=== PATIENT | female | born 1955 | race African-American/Black ===

== ENCOUNTER 2016-11-27 16:42 | Inpatient (IN) | payer MEDICARE, OTHER ==
[~2016-11-27] VITALS: Ht 170.2 cm; Wt 86.6 kg
--- NOTE | 2016-11-27 21:10 | NUR ---
Pt. admitted to [facility], under care of Dr. Jain Belongs List completed
--- NOTE | 2016-11-27 21:30 | NUR ---
ADMITTED 60 YEAR OLD AA FEMALE ON 5150 FOR GD, AWAKE, A/O X2, FLAT AFFECT, DISORGANIZED THOUGHT, SEEMS TO BE PREOCCUPIED, MAY BE RESPONDING TO INTERNAL STIMULI, THOUGH PT DENIES HEARING VOICES AT THIS TIME, VERY UNKEMPT APPEARANCE. ASSISTED WITH SHOWER, SKIN INTACT, DENIES SI/HI/PAIN. NO RECORD OF HOME MEDS, PT UNABLE TO SAY IF SHE IS ON ANY MEDICATION. UNABLE TO NOTIFY DESIGNATED PERSON, AT THIS TIME, WILL FOLLOW UP IN AM.
[2016-11-27] MEDS ORDERED: ZOLPIDEM 5 MG TABLET PO PRN (22:00)
[2016-11-27] MEDS ORDERED: MAG HYDROX/AL HYDROX/SIMETH 30 ML LIQUID UDC PO PRN (22:00)
[2016-11-27] MEDS ORDERED: MAGNESIUM HYDROXIDE 30 ML LIQUID UDC PO PRN (22:00)
[2016-11-27] MEDS ORDERED: ACETAMINOPHEN 325 MG TABLET PO PRN (22:00)
[2016-11-27 22:19] VITALS: BP 144/88
[2016-11-27] MEDS ORDERED: ZOLPIDEM 5 MG TABLET ONE (22:21)
[2016-11-27 22:36] LABS: *BILIRUBIN,URIN NEGATIVE (NEGATIVE); *BLOOD, URINE Trace-intact (NEGATIVE); *CLARITY,URINE CLEAR (CLEAR); *COLOR,URINE YELLOW (YELLOW); *KETONES,URINE NEGATIVE (NEGATIVE); *PROTEIN,URINE NEGATIVE (NEGATIVE); *UROBILINOGEN,URINE 0.2 E.U./dl (NORMAL); LEUKOCYTE ESTERASE ,URINE TRACE (NEGATIVE); NITRITE, URINE NEGATIVE (NEGATIVE); UGLUCOSE NEGATIVE (NEGATIVE)
[2016-11-27 22:50] LABS: BACTERIA,URINE MODERATE /HPF (NONE SEEN); SQUAMOUS EPITHELIAL CELL,UR FEW /HPF (NONE SEEN)
[2016-11-28 07:30] VITALS: BP_SYST 12; BP_SYST 120; BP_DIAS 69
[2016-11-28] MEDS: NICOTINE 21 MG/24HR PATCH TD SCH (08:56)
--- NOTE | 2016-11-28 15:27 | NUR ---
Initial DC Plan: KHUSHI discussed potential discharge plan with pt. Pt is currently homeless. Pt stated she is open to going to a half-way facility upon discharge. SW will speak to MD and patient regarding most appropriate discharge plan. SW will form a safe and proper discharge plan.
[2016-11-28 16:02] VITALS: BP 148/81
[2016-11-28] MEDS: OLANZAPINE ZYDIS 5 MG TAB.RAPDIS PO SCH (18:05)
[2016-11-28] MEDS: TRAZODONE 50 MG TABLET PO SCH (20:08)
[2016-11-28 20:09] VITALS: BP 106/58
[2016-11-29 07:20] LABS: BASOPHILS # (AUTO) 0.1 K/uL (0.0-8.0); BASOPHILS % (AUTO) 1.7 % (0.0-2.0); EOSINOPHILS # (AUTO) 0.2 K/uL (0.0-0.7); EOSINOPHILS % (AUTO) 4.2 % (0.0-7.0); HEMATOCRIT 40.4 % (37-47); HEMOGLOBIN 12.9 G/DL (12.0-16.0); LYMPHOCYTES # (AUTO) 1.9 K/UL (0.8-4.8); LYMPHOCYTES % (AUTO) 50.1 % (20.5-51.5); MEAN CORPUSCULAR HGB CONC 32 g/dL (32.0-37.0); MEAN CORPUSCULAR VOLUME 90.5 FL (81.0-99.0); MONOCYTES # (AUTO) 0.3 K/UL (0.1-1.30); MONOCYTES % (AUTO) 6.1 % (0.0-11.0); NEUTROPHILS # (AUTO) 1.6 K/UL (1.8-8.9); NEUTROPHILS % (AUTO) 37.9 % (38.5-71.5); PLATELET COUNT (AUTO) 274 K/UL (150-450); RED BLOOD CELL COUNT(AUTO) 4.46 MIL/UL (4.2-5.4); WHITE BLOOD COUNT (AUTO) 4.1 K/UL (4.0-11.2)
[2016-11-29 07:30] VITALS: BP 131/77
[2016-11-29 07:31] LABS: BILIRUBIN,TOTAL 0.2 mg/dL (0.2-1.0); POTASSIUM 4.2 mmol/L (3.5-5.1); TOTAL PROTEIN, SERUM 7.2 g/dL (6.4-8.2)
[2016-11-29] MEDS: OLANZAPINE ZYDIS 5 MG TAB.RAPDIS PO SCH ×2 (09:24→18:05)
[2016-11-29] MEDS: ESCITALOPRAM OXALATE 10 MG TABLET PO SCH (09:24)
[2016-11-29] MEDS: NICOTINE 21 MG/24HR PATCH TD SCH (09:25)
[2016-11-29 16:00] VITALS: BP 116/67
[2016-11-29] MEDS: TRAZODONE 50 MG TABLET PO SCH (20:18)
[2016-11-29 20:21] VITALS: BP 125/56
--- NOTE | 2016-11-30 06:43 | NUR ---
[facility]: REMAIN CALM AND COOPERATIVE WITH MEDS AND CARE. NO AGITATION NOTED THIS MORNING. SLEPT 06:30 HRS THROUGH THE NIGHT. CONTINUE PLAN OF CARE.
[2016-11-30 07:30] VITALS: BP 142/83
[2016-11-30] MEDS: ESCITALOPRAM OXALATE 10 MG TABLET PO SCH (08:01)
[2016-11-30] MEDS: NICOTINE 21 MG/24HR PATCH TD SCH (08:02)
[2016-11-30] MEDS: OLANZAPINE ZYDIS 5 MG TAB.RAPDIS PO SCH ×2 (08:02→17:49)
--- NOTE | 2016-11-30 12:20 | NUR ---
Blood sugar accu check 226 mg/ dl. charted error, not the right patient.
[2016-11-30 15:00] VITALS: BP 137/72
[2016-11-30 19:43] VITALS: BP 136/68
[2016-11-30] MEDS: TRAZODONE 50 MG TABLET PO SCH (21:18)
[2016-12-01 07:30] VITALS: BP 162/76
[2016-12-01] MEDS: ESCITALOPRAM OXALATE 10 MG TABLET PO SCH (08:21)
[2016-12-01] MEDS: NICOTINE 21 MG/24HR PATCH TD SCH (08:22)
[2016-12-01] MEDS: OLANZAPINE ZYDIS 5 MG TAB.RAPDIS PO SCH ×2 (08:22→17:15)
[2016-12-01 15:00] VITALS: BP 147/78
[2016-12-01] MEDS: TRAZODONE 50 MG TABLET PO SCH (20:31)
[2016-12-01 20:37] VITALS: BP 138/73
[2016-12-02 07:30] VITALS: BP 117/65
[2016-12-02] MEDS: OLANZAPINE ZYDIS 5 MG TAB.RAPDIS PO SCH ×2 (08:48→16:04)
[2016-12-02] MEDS: NICOTINE 21 MG/24HR PATCH TD SCH (08:48)
[2016-12-02] MEDS: ESCITALOPRAM OXALATE 10 MG TABLET PO SCH (08:48)
[2016-12-02 15:31] VITALS: BP 132/56
[2016-12-02] MEDS: TRAZODONE 50 MG TABLET PO SCH (20:01)
[2016-12-02 20:23] VITALS: BP 124/74
[2016-12-03 07:30] VITALS: BP 137/89
[2016-12-03] MEDS: NICOTINE 21 MG/24HR PATCH TD SCH (08:11)
[2016-12-03] MEDS: ESCITALOPRAM OXALATE 10 MG TABLET PO SCH (08:11)
[2016-12-03] MEDS: OLANZAPINE ZYDIS 5 MG TAB.RAPDIS PO SCH ×2 (08:11→17:00)
[2016-12-03] MEDS: LORAZEPAM 0.5 MG TABLET PO PRN (11:33)
[2016-12-03 16:01] VITALS: BP 148/72
[2016-12-03 20:15] VITALS: BP 112/50
[2016-12-03] MEDS: TRAZODONE 50 MG TABLET PO SCH (20:32)
[2016-12-04] MEDS: LORAZEPAM 0.5 MG TABLET PO PRN (04:17)
[2016-12-04 07:43] VITALS: BP 151/75
[2016-12-04] MEDS: OLANZAPINE ZYDIS 5 MG TAB.RAPDIS PO SCH ×2 (08:14→16:17)
[2016-12-04] MEDS: NICOTINE 21 MG/24HR PATCH TD SCH (08:14)
[2016-12-04] MEDS: ESCITALOPRAM OXALATE 10 MG TABLET PO SCH (08:14)
[2016-12-04 16:27] VITALS: BP 147/71
[2016-12-04 18:08] LABS: *BILIRUBIN,URIN NEGATIVE (NEGATIVE); *BLOOD, URINE Trace-lysed (NEGATIVE); *KETONES,URINE NEGATIVE (NEGATIVE); *PROTEIN,URINE NEGATIVE (NEGATIVE); *UROBILINOGEN,URINE 0.2 E.U./dl (NORMAL); LEUKOCYTE ESTERASE ,URINE TRACE (NEGATIVE); NITRITE, URINE NEGATIVE (NEGATIVE); UGLUCOSE NEGATIVE (NEGATIVE)
[2016-12-04 19:48] LABS: *CLARITY,URINE SLIGHTLY HAZY (CLEAR); *COLOR,URINE LIGHT YELLOW (YELLOW)
[2016-12-04 19:49] LABS: BACTERIA,URINE MODERATE /HPF (NONE SEEN); SQUAMOUS EPITHELIAL CELL,UR MODERATE /HPF (NONE SEEN)
[2016-12-04 20:05] VITALS: BP 130/70
[2016-12-04] MEDS: TRAZODONE 50 MG TABLET PO SCH (20:09)
[2016-12-05 07:30] VITALS: BP 150/84
[2016-12-05 07:32] LABS: BASOPHILS # (AUTO) 0.1 K/uL (0.0-8.0); BASOPHILS % (AUTO) 1.3 % (0.0-2.0); EOSINOPHILS # (AUTO) 0.3 K/uL (0.0-0.7); EOSINOPHILS % (AUTO) 4.9 % (0.0-7.0); HEMATOCRIT 41.1 % (37-47); HEMOGLOBIN 13.5 G/DL (12.0-16.0); LYMPHOCYTES # (AUTO) 2.8 K/UL (0.8-4.8); MEAN CORPUSCULAR HGB CONC 33 g/dL (32.0-37.0); MEAN CORPUSCULAR VOLUME 91.3 FL (81.0-99.0); MONOCYTES # (AUTO) 0.3 K/UL (0.1-1.30); MONOCYTES % (AUTO) 5.1 % (0.0-11.0); NEUTROPHILS # (AUTO) 1.6 K/UL (1.8-8.9); NEUTROPHILS % (AUTO) 31.7 % (38.5-71.5); PLATELET COUNT (AUTO) 261 K/UL (150-450); WHITE BLOOD COUNT (AUTO) 5.1 K/UL (4.0-11.2)
[2016-12-05 07:50] LABS: BILIRUBIN,TOTAL 0.2 mg/dL (0.2-1.0); PHOSPHOROUS 4.4 mg/dL (2.5-4.9); TOTAL PROTEIN, SERUM 7.5 g/dL (6.4-8.2)
[2016-12-05] MEDS: ESCITALOPRAM OXALATE 10 MG TABLET PO SCH (08:07)
[2016-12-05] MEDS: OLANZAPINE ZYDIS 5 MG TAB.RAPDIS PO SCH ×2 (08:07→16:04)
[2016-12-05] MEDS: NICOTINE 21 MG/24HR PATCH TD SCH (08:07)
[2016-12-05] MEDS: CEPHALEXIN MONOHYDRATE 500 MG CAPSULE PO SCH ×3 (11:11→22:31)
[2016-12-05 16:00] VITALS: BP 153/86
[2016-12-05 20:00] VITALS: BP 144/77
[2016-12-05] MEDS: TRAZODONE 50 MG TABLET PO SCH (20:45)
--- NOTE | 2016-12-05 22:54 | NUR ---
PATIENT RECEIVED IN ROOM AWAKE. PATIENT CALM, COOPERATIVE PLEASANT UPON APPROACH. PATIENT COMPLAINT WITH MEDICATION. NO AGGRESSIVE OR COMBATIVE BEHAVIOR NOTED WILL CONTINUE TO MONITOR. PATIENT DENIES PAIN AT THIS TIME, WILL CONTINUE TO MONITOR.
[2016-12-06] MEDS: CEPHALEXIN MONOHYDRATE 500 MG CAPSULE PO SCH ×3 (06:35→21:18)
[2016-12-06 07:30] VITALS: BP 121/81
[2016-12-06] MEDS: NICOTINE 21 MG/24HR PATCH TD SCH (08:08)
[2016-12-06] MEDS: OLANZAPINE ZYDIS 5 MG TAB.RAPDIS PO SCH ×2 (08:09→17:59)
[2016-12-06] MEDS: ESCITALOPRAM OXALATE 10 MG TABLET PO SCH (08:09)
[2016-12-06 16:00] VITALS: BP 141/80
[2016-12-06] MEDS: TRAZODONE 50 MG TABLET PO SCH (20:08)
[2016-12-06 20:36] VITALS: BP 122/73
[2016-12-07] MEDS: CEPHALEXIN MONOHYDRATE 500 MG CAPSULE PO SCH (05:47)
[2016-12-07 07:30] VITALS: BP 149/87
[2016-12-07] MEDS: NICOTINE 21 MG/24HR PATCH TD SCH (08:38)
[2016-12-07] MEDS: ESCITALOPRAM OXALATE 10 MG TABLET PO SCH (08:38)
[2016-12-07] MEDS: OLANZAPINE ZYDIS 5 MG TAB.RAPDIS PO SCH (08:38)
--- NOTE | 2016-12-07 10:25 | NUR ---
DC Note: Patient will be discharged to [facility] [[place] [address]; ] via ambulance at 12:30pm. KHUSHI spoke with Jacki at [facility] to confirm discharge plan. Patient is aware and agreeable to discharge plan. Patient will follow up with Dr. Jain (Psychiatrist) and Dr. Stuart (Zoology Professor). Addendum: 12/07/16 at 1209 by CORBY PURI For smoking cessation, patient was referred to [employer] [id number]-[id number] and [employer] [phone].
--- NOTE | 2016-12-07 12:45 | NUR ---
PT IS GROOMED APPROPRIATELY, CALM, COOPERATIVE, V/S STABLES. D/C WITH BELONGINGS AND VALUABLES. PT WILL BE COMPLIANT WITH CARE AND MEDICATIONS. PT DENIES SI AT THIS TIME. PT WAS TRANSPORTED BY AMBULANCE AND SENT TO [facility]. REPORT WAS GIVEN TO NAHOMI AT [facility]. PT LEFT THE HOSPITAL AT 1245.
== END 2016-12-07 12:45 | DRG 885 ==
LOC: ER 16:45 → GPS 20:59
PROVIDERS: ADMIT Psychiatry & Neurology Psychiatry
DX: F25.1 Schizoaffective disorder, depressive type (principal); E88.09 Other disorders of plasma-protein metabolism, not elsewhere classified; I10 Essential (primary) hypertension; N39.0 Urinary tract infection, site not specified; Z59.0 Homelessness; E66.9 Obesity, unspecified; Z79.899 Other long term (current) drug therapy; Z68.29 Body mass index [BMI] 29.0-29.9, adult; Z87.440 Personal history of urinary (tract) infections; E78.5 Hyperlipidemia, unspecified; F41.9 Anxiety disorder, unspecified
CPT/HCPCS: 36415; 70450; 71010; 83735; 84100; 84443; 85025; 87086; 93005; A4663

== ENCOUNTER 2019-07-15 09:06 | Emergency (ER) | payer MEDICARE, OTHER ==
[~2019-07-15] VITALS: Ht 170.2 cm; Wt 104.3 kg
--- NOTE | 2019-07-15 09:23 | NUR ---
PT CAME IN AMBULATORY C/O PAIN ON RIGHT LOWER EXTREMETY PAIN. A/O X3. SPEAKS COMPLETE SENTENCES. RESPIRATION IS EVEN AND UNLABORED NO PREVIOUS TRAUMA/FALL. MONITORED ACCORDINGLY WILL CONTINUE TO MONITOR
[2019-07-15] MEDS ORDERED: IBUPROFEN 600 MG TABLET ONE (09:28)
[2019-07-15] MEDS ORDERED: IBUPROFEN 600 MG TABLET PO ONE (09:30)
--- NOTE | 2019-07-15 09:46 | NUR ---
Patient discharged to home in stable condition. Written and verbal after care instructions given. Patient verbalizes understanding of instructions. Stressed follow up or return to ER for worsening s/s. STEADY GAIT. HOMELESS INFORMATION PACKET GIVEN.
[2019-07-15 09:48] VITALS: BP 139/82
== END 2019-07-15 09:50 | disposition home or self-care (01) ==
LOC: ER 09:06
DX: M25.551 Pain in right hip (principal); M79.651 Pain in right thigh
CPT/HCPCS: A4663